=== PATIENT | male | born 1965 | race Caucasian/White ===

== ENCOUNTER 2022-09-24 08:33 | Emergency (ER) | payer MEDICAID ==
[~2022-09-24] VITALS: Ht 170.2 cm; Wt 89.0 kg
[2022-09-24 12:31] VITALS: BP 62/36
[2022-09-24 12:35] LABS: BASO% 0.5 % (0-3); EOS% 2.7 % (0-8); HEMATOCRIT 44.9 % (39.0-50.0); HEMOGLOBIN 14.5 g/dl (14.0-18.0); IMMATURE GRANULOCYTES 0.3 % (0.0-5.0); LYMPH% 6.9 % (15-41); MEAN CELL VOLUME 93.9 fL CALC (80.0-100.0); MEAN CORPUSCULAR HGB 30.3 pG CALC (26.0-32.0); MEAN CORPUSCULAR HGB CONC 32.3 g/dL CAL (32.0-36.0); MONO% 8.7 % (2-13); NEUT# 8.04 thou/uL (1.82-7.42); NEUT% 80.9 % (42-76); RED BLOOD COUNT 4.78 mill/uL (4.70-6.10)
[2022-09-24 12:45] LABS: ALBUMIN 4.1 g/dL (3.2-5.0); ALKALINE PHOSPHATASE 39 u/l (38-126); ANION GAP 11 (6-22 (CALC)); BUN 15 mg/dL (9-20); BUN/CREATININE RATIO 16 (12-20 (CALC)); CARBON DIOXIDE 23 mmol/l (22-30); CHLORIDE 108 mmol/l (95-108); GFR FOR AFR.AMER. > 60 ML/MIN (>=60 (CALC)); GFR OTHER RACES > 60 ML/MIN (>=60 (CALC)); POTASSIUM 4.9 mmol/l (3.5-5.1); SGOT/AST 32 u/l (17-59); SODIUM 136 mmol/l (137-146); TOTAL PROTEIN 6.8 g/dL (6.3-8.2)
[2022-09-24 12:46] VITALS: BP 97/79
[2022-09-24 13:00] VITALS: BP 104/70
[2022-09-24 13:31] VITALS: BP 121/100
[2022-09-24 13:36] VITALS: BP 145/75
[2022-09-24 14:00] VITALS: BP 116/76
== END 2022-09-24 16:11 | disposition home or self-care (01) ==
LOC: ED 08:33
PROVIDERS: Emergency Medicine
DX: U07.1 COVID-19 (principal); I95.9 Hypotension, unspecified; E86.0 Dehydration; J84.10 Pulmonary fibrosis, unspecified; F79 Unspecified intellectual disabilities
CPT/HCPCS: Q9967